=== PATIENT | male | born 1975 | race Caucasian/White ===

== ENCOUNTER 2016-11-01 11:35 | Emergency (ER) | payer OTHER ==
[~2016-11-01] VITALS: Ht 170.2 cm; Wt 75.9 kg
[2016-11-01 11:38] VITALS: TEMP 36.7; Ht 170.2 cm; Wt 75.9 kg
[2016-11-01] MEDS ORDERED: PRLSR20 PO (11:43)
[2016-11-01] MEDS ORDERED: SODIUM CHLORIDE 0.9% 1000ML 1,000 ML IV STA ×2 (12:07)
--- NOTE | 2016-11-01 12:09 | EMERGENCY ROOM VISIT NOTE ---
History Report prepared by Kike: Chata Spence Under the Supervision of: Dr. Bartolo Peters M.D. First contact with patient: 12:02 Chief Complaint: DIARRHEA Stated Complaint: DIARRHEA X 3 DAYS, SIDE EFFECT OF PRILOSEC Nursing Triage Summary: triage note; pt reports diarrhea x 3 days. pt reports genearalized body aches "and my neck but i started prilosec a month ago." pt reports chills. pt reports upper abd pain. History of Present Illness The patient is a 40 year old male who presents to the Emergency Room with complaints of persistent diarrhea for the past 3 days. He reports he was camping this past week and using river water to wash his hands and clean. The diarrhea is "dark, loose and watery" and he admits to some crampy abdominal pain. He took 2 Imodium yesterday, which provided temporary relief. He has not vomited and denies anyone else on his camping trip having similar symptoms. He does admit to the chills but denies running any fevers. He has also experienced generalized body aches and neck pain. The patient notes he has been taking Prilosec for the past 1 month, for a history of GERD, and he is not sure if that is related. He did stop taking the Prilosec this morning. 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 A total of 10 systems reviewed and were otherwise negative. Past Medical & Surgical Medical Problems: (1) GERD (gastroesophageal reflux disease) Social History Smoking Status: Never Smoker Smokeless Tobacco Use: No Alcohol Use: occasionally Drug Use: none Marital Status: Housing Status: lives with family Occupation Status: employed Current/Historical Medications Scheduled Omeprazole (Prilosec), 20 MG PO DAILY Allergies Coded Allergies: No Known Allergies (Unverified , 11/01/16) Physical Exam Vital Signs Date Time Temp Pulse Resp B/P (MAP) Pulse Ox O2 Delivery O2 Flow Rate FiO2 11/01/16 14:58 72 20 121/80 98 11/01/16 14:01 78 20 127/83 97 Room Air 11/01/16 12:47 75 11/01/16 11:38 36.7 91 18 137/84 95 Room Air Physical Exam GENERAL: Patient is in no acute distress. HEENT: No acute trauma, normocephalic atraumatic, mucous membranes moist, no nasal congestion, no scleral icterus. NECK: No stridor, no adenopathy, no meningismus, trachea is midline. LUNGS: Clear to auscultation bilaterally, no wheeze, no rhonchi, breath sounds equal. HEART: Without murmurs gallops or rubs, regular rate and rhythm. ABDOMEN: Soft, nontender, bowel sounds positive, no hernias, no peritonitis. EXTREMITIES: No cyanosis or edema, full range of motion of all the joints without pain or difficulty, no signs for acute trauma. NEUROLOGIC: Oriented x 3, no acute motor or sensory deficits, no focal weakness. SKIN: No rash, no jaundice, no diaphoresis. Medical Decision & Procedures Laboratory Results 11/01/16 12:20 Red Blood Count 4.89, Mean Corpuscular Volume 89.0, Mean Corpuscular Hemoglobin 29.9, Mean Corpuscular Hemoglobin Concent 33.6, Mean Platelet Volume 10.5, Neutrophils (%) (Auto) 75.6, Lymphocytes (%) (Auto) 11.2, Monocytes (%) (Auto) 10.9, Eosinophils (%) (Auto) 1.9, Basophils (%) (Auto) 0.2, Neutrophils # (Auto ) 7.25, Lymphocytes # (Auto) 1.07, Monocytes # (Auto) 1.05, Eosinophils # (Auto ) 0.18, Basophils # (Auto) 0.02 11/01/16 12:20 Test 11/01/16 12:20 11/01/16 12:36 White Blood Count 9.59 K/uL (4.8-10.8) Red Blood Count 4.89 M/uL (4.7-6.1) Hemoglobin 14.6 g/dL (14.0-18.0) Hematocrit 43.5 % (42-52) Mean Corpuscular Volume 89.0 fL (80-100) Mean Corpuscular Hemoglobin 29.9 pg (25-34) Mean Corpuscular Hemoglobin Concent 33.6 g/dl (32-36) Platelet Count 197 K/uL (130-400) Mean Platelet Volume 10.5 fL (7.4-10.4) Neutrophils (%) (Auto) 75.6 % Lymphocytes (%) (Auto) 11.2 % Monocytes (%) (Auto) 10.9 % Eosinophils (%) (Auto) 1.9 % Basophils (%) (Auto) 0.2 % Neutrophils # (Auto) 7.25 K/uL (1.4-6.5) Lymphocytes # (Auto) 1.07 K/uL (1.2-3.4) Monocytes # (Auto) 1.05 K/uL (0.11-0.59) Eosinophils # (Auto) 0.18 K/uL (0-0.5) Basophils # (Auto) 0.02 K/uL (0-0.2) RDW Standard Deviation 42.2 fL (36.4-46.3) RDW Coefficient of Variation 12.9 % (11.5-14.5) Immature Granulocyte % (Auto) 0.2 % Immature Granulocyte # (Auto) 0.02 K/uL (0.00-0.02) Anion Gap 8.0 mmol/L (3-11) Est Creatinine Clear Calc Drug Dose 99.6 ml/min Estimated GFR () 118.7 Estimated GFR (Non- 102.4 BUN/Creatinine Ratio 6.8 (10-20) Calcium Level 8.6 mg/dl (8.5-10.1) Total Bilirubin 0.4 mg/dl (0.2-1) Aspartate Amino Transf (AST/SGOT) 14 U/L (15-37) Alanine Aminotransferase (ALT/SGPT) 23 U/L (12-78) Alkaline Phosphatase 68 U/L (45-117) Total Protein 6.9 gm/dl (6.4-8.2) Albumin 3.3 gm/dl (3.4-5.0) Globulin 3.6 gm/dl (2.5-4.0) Albumin/Globulin Ratio 0.9 (0.9-2) Thyroid Stimulating Hormone (TSH) 0.661 uIu/ml (0.300-4.500) Laboratory results reviewed by me. Medications Administered Medications (Trade) Dose Ordered Sig/Alfie Route Start Time Stop Time Status Last Admin Dose Admin Sodium Chloride 1,000 ml @ 999 mls/hr Q1H1M STAT IV 11/01/16 12:07 11/01/16 13:07 DC 11/01/16 12:07 999 MLS/HR ED Course 1203: The patient was evaluated in room A11. A complete history and physical exam was performed. 1207: NSS 1000 ml @ 200 mls/hr IV, NSS 1000 ml @ 999 mls/hr IV. 1336: Nursing informed me the patients stool sample is heme negative and has been sent to the lab. 1443: I reevaluated the patient. He is feeling well. I discussed his results and discharge instructions and he verbalized complete understanding and agreement. Medical Decision Medication Reconciliation: I attest that I have personally reviewed the patient' s current medication list. Blood Pressure Screening: Patient was found to have normal blood pressure on screening and does not require follow-up. The differential diagnoses considered include dehydration, electrolyte imbalance , renal failure, food borne illness, viral illness, medication reaction, parasite infection and GI bleeding. There is no leukocytosis or concerning anemia. No significant electrolyte abnormality, kidney failure, hepatitis. The patient appears to be in a euthyroid state. Stool cultures are pending, stool for parasite testing is pending, stool C. difficile testing was negative. Stool heme test was negative. The patient was not febrile or toxic, there was no peritonitis. The patient received IV saline, he is resting comfortably. I'm going to have the patient stop his Prilosec. A bland diet has been suggested. Imodium for diarrhea as needed [id number]. We can call him with any positive stool culture results. The patient was felt stable for discharge, he was encouraged to return if worsening. Impression Primary Impression: Diarrhea Additional Impression: Dehydration Scribe Attestation The scribe's documentation has been prepared under my direction and personally reviewed by me in its entirety. I confirm that the note above accurately reflects all work, treatment, procedures, and medical decision making performed by me. Departure Information Dispostion Home / Self-Care Referrals No Doctor, Assigned (PCP) Patient Instructions My [facility] Additional Instructions fluids bland diet---crackers, soup, toast, gatorade use immodium otc for the diarrhea rest tylenol for pain we will call with positive stool samples stop the prilosec for now and use zantac 2x per day return if worsening Problem Qualifiers
[2016-11-01 12:43] LABS: BASO % 0.2 %; BASO ABS # 0.02 K/uL (0-0.2); COMPLETE YES; EOS % 1.9 %; HEMATOCRIT 43.5 % (42-52); IG% 0.2 %; LYMPH % 11.2 %; LYMPH ABS # 1.07 K/uL (1.2-3.4); MEAN CORPUSCULAR HEMOGLOBIN 29.9 pg (25-34); MEAN CORPUSCULAR HGB CONC 33.6 g/dl (32-36); MEAN PLATELET VOLUME 10.5 fL (7.4-10.4); MONO % 10.9 %; NEUT % 75.6 %; PLATELET COUNT 197 K/uL (130-400); RED BLOOD COUNT 4.89 M/uL (4.7-6.1); WHITE BLOOD COUNT 9.59 K/uL (4.8-10.8)
[2016-11-01 13:05] LABS: BUN/CREATININE RATIO 6.8 (10-20); CREATININE 0.94 mg/dl (0.60-1.40); POTASSIUM 4.1 mmol/L (3.5-5.1)
[2016-11-01 13:09] LABS: CALCIUM 8.6 mg/dl (8.5-10.1)
[2016-11-01 13:21] LABS: ALB/GLOB RATIO 0.9 (0.9-2); THYROID STIMULATING HORMONE 0.661 uIu/ml (0.300-4.500)
[2016-11-01 14:58] VITALS: BP 121/80; PULSE 72; O2SAT 98
[2016-11-07 14:24] LABS: O&P GIARDIA AG NOT DETECTED (NOT DETECTED); O&P SOURCE OTHER-STOOL
== END 2016-11-01 14:59 | disposition home or self-care (01) ==
LOC: C.EDB 11:36 → C.EDA 14:59
DX: R19.7 Diarrhea, unspecified (principal); E86.0 Dehydration; K21.9 Gastro-esophageal reflux disease without esophagitis; Z79.899 Other long term (current) drug therapy